=== PATIENT | male | born 1995 | race Caucasian/White ===

== ENCOUNTER 2018-01-13 11:45 | Emergency (ER) | payer OTHER ==
[2018-01-13 11:53] VITALS: BP 114/69
--- NOTE | 2018-01-13 12:10 | EDPHY ---
H & P Time Seen by Provider: 01/13/18 11:59 HPI/ROS: CHIEF COMPLAINT: "My foot was purple" HISTORY OF PRESENT ILLNESS: 22-year-old male , otherwise healthy, no history of coagulopathic disorder, awoke this morning with purple discoloration to the plantar aspect of his foot as well as his toes. This has now resolved. He is complaining of pain to the plantar aspect worse with palpation and plantar flexion. He denies trauma. Denies leg or calf or ankle pain. Denies unusual physically exertional activities recently. Denies chest pain or dyspnea. Denies urinary abnormality or urethral symptoms. He is able to weight PHYSICAL EXAM (Prior to examination, patient consented to physical exam, hands were washed and my usual and customary physical exam procedures followed) 1) GENERAL: Well-developed, well-nourished, alert and oriented. Appears to be in no acute distress. 2) HEAD: Normocephalic 3) HEENT: Pupils equal, round, reactive to light bilaterally. 4) LUNGS: Breathing comfortably. 5) MUSCULOSKELETAL: Tender to palpation plantar aspect of right foot worse with plantar flexion of the toes and foot. No signs of trauma. No crepitus. proximal tibia and fibula nontender .5th MT nontender negative Molina test, compartments soft 6) SKIN: Normal pink color and normal temperature. No ecchymosis. No crepitus. 7) VASCULAR: DP,PT pulses and cap refill present and brisk, capillary refill less than 2 sec. No ecchymosis. DIFFERENTIAL DIAGNOSIS: in no particular order including but not limited to fracture, sprain, compartment syndrome, vasospasms, arterial occlusive disease, DVT, infectious etiology, septic arthritis, cellulitis Procedure: Splint A postop shoe splint was applied by ER hazardous waste technician. After application of the splint I returned and re-examined the patient. The splint was adequately immobilizing the joint and distal to the splint the patient's circulation and sensation were intact. Patient shows no signs of compartment syndrome. Was given orthopedic precautions. Smoking Status: Former smoker Constitutional: Initial Vital Signs Temperature (C) 36.6 C 01/13/18 11:50 Heart Rate 86 01/13/18 11:50 Respiratory Rate 18 01/13/18 11:50 Blood Pressure 114/69 01/13/18 11:50 O2 Sat (%) 96 01/13/18 11:50 O2 Delivery Mode Room Air Allergies/Adverse Reactions: cephalexin [Cephalexin] Allergy (Verified 07/27/15 12:36) Penicillins Allergy (Verified 07/27/15 12:36) Sulfa (Sulfonamide Antibiotics) Allergy (Verified 07/27/15 12:36) Home Medications: Medication Instructions Recorded NK [No Known Home Meds] 07/27/15 MDM/Departure - MDM Imaging Results: Imaging Impressions Foot X-Ray 01/13/18 12:08 Impression: Negative right foot radiographs. Images reviewed by myself ED Course/Re-evaluation: 12:45 p.m.: Patient has been re-evaluated with serial examinations while in the ER, most recently at this time Discussed his imaging results, discussed limitations of imaging results. We discussed possible etiologies for symptoms which are now resolved. We discussed possibility of transient vaso spasm. I think that DVT or arterial occlusion is less than likely this patient at this time given his normal neurovascular examination. We discussed possibility of plantar fasciitis. I think that septic arthritis of the foot or ankle is less than likely in this patient. This time I do not think that specific vascular studies such as ultrasound or CT follow-through studies are indicated as I have a low pretest probability for DVT or arterial occlusion. Nonetheless I have had a lengthy discussion with the patient provided return precautions and instructions. He feels comfortable being discharged. Care of patient under supervision of secondary supervising physician Dr Zambrano - Depart Disposition: Home, Routine, Self-Care Clinical Impression: Right foot pain Condition: Good Instructions: Foot Sprain (ED) Additional Instructions: Return to the ER immediately if you experience discoloration, have worsening pain, numbness, tingling, or any other symptoms that concern you. If you received x-rays in the emergency department today, be advised, that ligamentous , tendon, muscular, and other non-bony injury cannot be fully ruled out. Try to keep your affected extremity elevated above the level of your chest, and keep cold packs on the affected area, for the next 48 hours. Referrals: Satnam Treviño DPM [Doctor of Podiatric Medicine] - 1-2 days without fail
== END 2018-01-13 12:50 | disposition home or self-care (01) ==
DX: M79.671 Pain in right foot (principal); Z87.891 Personal history of nicotine dependence
CPT/HCPCS: L4386